=== PATIENT | female | born 1995 | race Two or more races ===

== ENCOUNTER → 2019-12-20 11:09 | Outpatient (BNVA) | payer MEDICAID, SELFPAY | PROVIDERS: Visit Provider Nurse Practitioner Family | DX: Z00.00 Encounter for general adult medical examination without abnormal findings (principal); H90.5 Unspecified sensorineural hearing loss; H61.23 Impacted cerumen, bilateral; Z68.20 Body mass index [BMI] 20.0-20.9, adult; Z71.3 Dietary counseling and surveillance; Z71.82 Exercise counseling | CPT/HCPCS: 80053; 85025 ==

== ENCOUNTER → 2021-01-16 16:01 | Outpatient (BNVA) | payer MEDICAID, SELFPAY | PROVIDERS: Visit Provider Nurse Practitioner | DX: H90.5 Unspecified sensorineural hearing loss (principal); R41.841 Cognitive communication deficit; M41.20 Other idiopathic scoliosis, site unspecified; E04.9 Nontoxic goiter, unspecified | CPT/HCPCS: 80053; 81000; 84443; 85025 ==

== ENCOUNTER 2021-02-11 07:47 | Outpatient (CLI) | payer MEDICAID, SELFPAY ==
--- NOTE | 2021-02-11 08:00 | XR_ITS ---
WS: [id number] Exam: XR scoliosis survey 2-3V [id number] Date/Time of Exam: 02/11/2021 8:04 AM Reason For Exam: M41.20 - Other idiopathic scoliosis, site unspecified Standing AP and lateral images of the lumbar and thoracic spine are submitted for scoliosis evaluatio n. There is thoracic scoliosis with right convexity measuring 12 degrees. The curve is measured from the upper plate of T5 to the upper plate of T12. No measurable lumbar scoliosis is seen. There is increa sed thoracic kyphosis and slightly exaggerated lumbar lordosis. There are no fractures or significant bony anomalies identified. Minimal spondylosis of the T-spine. XR/XR scoliosis survey 2-3V [id number] IMPRESSION: 1. Dextroscoliosis of the mid and lower thoracic spine measuring 12 degrees. 2. No significant measurable lumbar scoliosis. 3. Exaggerated thoracic kyphosis. Slightly increased lumbar lordosis.
--- NOTE | 2021-02-11 08:30 | CT_ITS ---
WS: [id number] CT HEAD NONCONTRAST HISTORY: R41.841 - Cognitive communication deficit TECHNIQUE: Contiguous axial imaging performed through the brain in 2.5 mm imaging. Bone and soft tiss ue windows. All CT scans at [facility] use at least one of these dose optimization techniq ues: automated exposure control; mA and/or kV adjustment per patient size (includes targeted exams wh ere dose is matched to clinical indication); or iterative reconstruction. DLP: 1467.54 mGycm COMPARISON: None available. No acute intracranial hemorrhage, midline shift or mass effect. No atrophy or prior infarcts or herniation. 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 Ventricles: Normal size with no hydrocephalus. Paranasal sinuses: As visualized are clear. Mastoid air cells: Increased fluid in the LEFT mastoid air cells. No extension into the internal abdias tory canal. Calvarium and scalp: Skull is intact with no soft tissue edema or swelling. CT/CT head wo con* [id number] IMPRESSION: 1. No acute intracranial hemorrhage or edema. Tiny prior lacunar infarcts in t he RIGHT caudate head and LEFT basal ganglia. 2. LEFT mastoid air cell effusion, moderate.
== END 2021-02-11 07:48 | disposition home or self-care (01) ==
PROVIDERS: PCP Nurse Practitioner; Visit Provider Nurse Practitioner
DX: R41.841 Cognitive communication deficit (principal); M41.20 Other idiopathic scoliosis, site unspecified; I63.9 Cerebral infarction, unspecified
CPT/HCPCS: 70450; 72082

== ENCOUNTER 2021-03-04 13:37 | Outpatient (CLI) | payer MEDICAID, SELFPAY ==
--- NOTE | 2021-03-04 14:15 | US_ITS ---
WS: [id number] ULTRASOUND THYROID TECHNIQUE: Ultrasound of the thyroid. CLINICAL INFORMATION: E04.9 - Nontoxic goiter, unspecified COMPARISON: None. FINDINGS: Thyroid: Right and left thyroid lobes are normal in size and echotexture. 5 x 7 x 3 mm echogenic nodu le right mid thyroid. No left thyroid nodules. Right thyroid lobe: 4.4 cm x 1.3 cm x 1.5 cm Left thyroid lobe: 3.5 cm x 1.3 cm x 1.2 cm. Isthmus: 0.3 mm. Cervical lymphadenopathy: None. US/US thyroid [id number] IMPRESSION: 1. Thyroid is normal in size and echotexture. 2. Small echogenic nodule right thyroid measuring 5 x 7 x 3 mm. This is likely incidental and can be followed up in 12-24 months 3. No left thyroid nodules. 4. No lesions to target for biopsy.
== END 2021-03-04 13:38 | disposition home or self-care (01) ==
LOC: US 13:41
PROVIDERS: PCP Nurse Practitioner; Visit Provider Nurse Practitioner
DX: E04.9 Nontoxic goiter, unspecified (principal); E04.1 Nontoxic single thyroid nodule
CPT/HCPCS: 76536